=== PATIENT | male | born 2000 | race Caucasian/White ===

== ENCOUNTER 2018-05-29 19:59 | Emergency (ER) | payer OTHER ==
[~2018-05-29] VITALS: Ht 182.9 cm; Wt 59.0 kg
[~2018-05-29 19:59] MED LIST: IBUPROFEN 200200 M1 PO
[2018-05-29] MEDS ORDERED: BACTRIM DS TAB1 EACH PO (20:12)
[2018-05-29 20:18] VITALS: BP 129/79
== END 2018-05-29 20:19 | disposition home or self-care (01) ==
LOC: M.ERS 19:59
DX: L03.115 Cellulitis of right lower limb (principal); J45.909 Unspecified asthma, uncomplicated